=== PATIENT | female | born 1970 | race Caucasian/White ===

== ENCOUNTER → 2017-03-18 16:32 | Outpatient (CLI) | payer BC, SELFPAY ==
[2017-03-18 18:15] LABS: Estradiol 133.2 pg/mL
[2017-03-18 18:26] LABS: Progesterone Level 2.42 ng/mL (See Comment)
[2017-03-23 14:56] LABS: HPV Reflexed? NOT INDICATED
== END ==
PROVIDERS: Visit Provider Obstetrics & Gynecology
DX: N95.1 Menopausal and female climacteric states (principal); Z12.4 Encounter for screening for malignant neoplasm of cervix
CPT/HCPCS: 36415; 82670; 84144; 88175; G0145

== ENCOUNTER → 2018-04-28 16:51 | Outpatient (CLI) | payer BC, SELFPAY ==
[2018-04-28 17:47] LABS: Estradiol 36.9 pg/mL
[2018-04-28 18:03] LABS: Progesterone Level 0.89 ng/mL (See Comment)
[2018-05-03 14:44] LABS: HPV Reflexed? NOT INDICATED
== END ==
PROVIDERS: Visit Provider Obstetrics & Gynecology
DX: N95.1 Menopausal and female climacteric states (principal); Z12.4 Encounter for screening for malignant neoplasm of cervix
CPT/HCPCS: 36415; 82670; 84144; 88175; G0145

== ENCOUNTER → 2020-09-07 07:17 | Outpatient (CLI) | payer BC, SELFPAY ==
--- NOTE | 2020-09-07 07:20 | BI_ITS ---
MAMMOGRAPHY - BILATERAL SCREENING REASON FOR EXAM: Female, 50 years old. Routine annual screening examination. PERTINENT HISTORY: Non-contributory. TECHNIQUE: Digital bilateral breast catina (3D mammographic acquisition) in the CC and MLO projections. 2-D mediolateral oblique (MLO) and craniocaudad (CC) views of both breasts were obtained. CAD: Full Field Digital Mammography with Computer Added Detection was performed. COMPARISON: None. Baseline examination. FINDINGS: Breast Composition: The breasts are extremely dense, which lowers the sensitivity of mammography. There are no dominant masses or suspicious calcifications. Bilateral breast implants are seen. The anterior and inferior contours of the left breast implant show a wavy pattern with a linear density in the midline. Early rupture should be ruled out. No other significant abnormalities are identified. BI/SCRN MAMM (CAD)W/CATINA BILAT IMPRESSION: Negative screening mammogram. Irregularity and septation of the left breast implant that described. Clinical correlation is recommended. Yearly followup mammogram recommended. (A) ASSESSMENT CATEGORY: BIRADS Category 2: Benign. A letter regarding these results will be sent to the patient by the facility within 30 days. Approximately 10% of breast cancers are not detected by mammography. A normal mammogram should not delay biopsy of a clinically suspicious abnormality. [id number] Electronically Signed: Param Adan MD at 8:54 EDT , Service support ,
== END ==
PROVIDERS: Referring Provider Obstetrics & Gynecology; Visit Provider Obstetrics & Gynecology
DX: Z12.31 Encounter for screening mammogram for malignant neoplasm of breast (principal)
CPT/HCPCS: 77063; 77067

== ENCOUNTER → 2021-09-03 | Outpatient (CLI) | payer BC, SELFPAY ==
[2021-09-03 17:23] LABS: Estradiol 34.2 pg/mL
== END | disposition home or self-care (01) ==
PROVIDERS: Visit Provider Obstetrics & Gynecology
DX: Z12.4 Encounter for screening for malignant neoplasm of cervix (principal); Z78.0 Asymptomatic menopausal state
CPT/HCPCS: 82670; 84144; 87624; 88175; G0145

== ENCOUNTER → 2021-10-31 | Outpatient (CLI) | payer BC, SELFPAY ==
[2021-10-31 15:20] LABS: Red Blood Cells-Urine 0 SEEN /hpf (0-5); White Blood Cells 0 SEEN /hpf (0-5)
[2021-10-31 16:38] LABS: Basophil# 0.06 X10^3/uL; Basophil% 0.9 % (0-1); Color, Urine Yellow (Yellow); Eosinophil# 0.06 X10^3/uL; Eosinophils% 0.9 % (0-5); Glucose, Dipstick Normal (Normal); Hematocrit 43.2 % (37-47); Hemoglobin 14.3 g/dL (12.0-15.0); Ketone-Dipstick Negative (Negative); Leukocyte Esterase-Dipstick Negative /ul (Negative); Lymphocyte % 29.8 % (19-41); Mean Corp Hgb Conc 33.1 g/dL (32-36); Mean Corpuscular Hgb 28.8 pg (27.0-32.0); Mean Corpuscular Volume 86.9 fL (81-99); Mean Platelet Vol. 9.4 fl (6.2-12.0); Monocyte# 0.76 X10^3/uL; Monocyte% 10.8 % (0-10); NRBC Flagged by Analyzer 0 % (0-5); Neutrophil # 4.04 X10^3/uL (2.7-7.7); Neutrophil % 57.3 % (47-70); Nitrite-Dipstick Negative (Negative); Occult Blood-Urine Negative /ul (Negative); Platelet Count 324 K/mm3 (150-450); Protein-Dipstick Negative (Negative); RBC Distribution Width CV 12.9 % (11.6-14.6); RBC Distribution Width SD 40.5 fl (35.1-43.9); Red Blood Count 4.97 M/mm3 (4.2-5.4); Specific Gravity, Urine 1.025 (1.002-1.030); Urine Bilirubin Dipstick Negative (Negative); Urine Clarity Clear (Clear); Urine Urobilinogen Normal (Normal)
[2021-10-31 16:45] LABS: Erythrocyte Sedimentation Rate 8 mm/hr (0-30)
[2021-10-31 16:50] LABS: Bacteria 2+ /hpf (None Seen); Squamous Epithelial Cells - UA 5-10 SEEN /hpf (5-10)
[2021-10-31 16:51] LABS: Mucous, Urine 2+ /hpf (<or=2+)
[2021-10-31 16:54] LABS: AST(SGOT) 16 U/L (15-37); Alanine Aminotransfer ALT/SGPT 27 U/L (13-56); Albumin, Serum 3.9 g/dL (3.2-5.0); Alkaline Phosphatase 88 U/L (45-117); Anion Gap 6 (5-15); BUN 19 mg/dL (7-18); BUN/Creat Ratio 26.2 RATIO (10-20); Calcium,Total 9.4 mg/dL (8.5-10.1); Chloride 102 mmol/L (98-107); Creatinine, Serum 0.72 mg/dL (0.55-1.02); EST Glomerular Filtration Rate 91 mL/min (>60); Est Glom Filt Rate - Afr Amer 110 mL/min (>60); Globulin 4.1 g/dL (2.2-4.2); Glucose 97 mg/dL (74-106); Potassium 3.7 mmol/L (3.5-5.1); Rheumatoid Factor < 10.0 IU/mL (<15); Sodium Level 138 mmol/L (136-145)
[2021-11-05 15:15] LABS: ANTINUCLEAR ANTIBODIES DIRECT Negative (Negative)
[2021-11-06 08:35] LABS: CCP IgG Antibodies 5 units (0-19)
== END | disposition home or self-care (01) ==
LOC: BIMLAB 15:19
PROVIDERS: PCP Internal Medicine; Referring Provider Internal Medicine; Visit Provider Internal Medicine
DX: M19.90 Unspecified osteoarthritis, unspecified site (principal); R10.9 Unspecified abdominal pain; F41.9 Anxiety disorder, unspecified; F32.A Depression, unspecified
CPT/HCPCS: 36415; 80053; 81001; 85025; 85652; 86038; 86200; 86225; 86235; 86431

== ENCOUNTER → 2021-11-04 | Outpatient (CLI) | payer BC, SELFPAY ==
--- NOTE | 2021-11-04 15:18 | BI_ITS ---
MAMMOGRAPHY - BILATERAL SCREENING 3-D TOMOSYNTHESIS REASON FOR EXAM: Female, 51 years old. SCREENING PERTINENT HISTORY: No significant family history. TECHNIQUE: 2-D mammograms and 3-D Tomosynthesis of the breast (s) were performed. CAD was performed. COMPARISON: 09/07/2020 FINDINGS: The breast composition is Extermely dense tissue. Scattered benign calcifications are seen. No dense spiculated masses or suspicious microcalcifications are identified. No architectural distortion is identified. There is no skin thickening or retraction. Bilateral retroglandular saline implants appear intact. BI/SCRN MAMM (CAD)W/CATINA BILAT IMPRESSION: No mammographic signs of malignancy. Routine yearly mammograms recommended. ASSESSMENT CATEGORY: BIRADS Category 1: Negative. A letter regarding these results will be sent to the patient by the facility within 30 days. FOLLOW UP RECOMMENDATION: Yearly follow up mammogram recommended. (A) Approximately 10% of breast cancers are not detected by mammography. A normal mammogram should not delay biopsy of a clinically suspicious abnormality. Electronically Signed: Jose Funes MD at 16:43 EDT ,
== END | disposition home or self-care (01) ==
LOC: OPBI 15:17
PROVIDERS: PCP Internal Medicine; Referring Provider Student in an Organized Health Care Education/Training Program; Visit Provider Student in an Organized Health Care Education/Training Program
DX: Z12.31 Encounter for screening mammogram for malignant neoplasm of breast (principal)
CPT/HCPCS: 77063; 77067

== ENCOUNTER → 2021-11-06 | Outpatient (CLI) | payer BC, SELFPAY | END | disposition home or self-care (01) | LOC: LABSPEC 15:10 | PROVIDERS: PCP Internal Medicine; Referring Provider Internal Medicine; Visit Provider Internal Medicine | DX: R82.90 Unspecified abnormal findings in urine (principal) | CPT/HCPCS: 87086; 87088 ==

== ENCOUNTER 2023-12-02 09:00 | Outpatient (RCR) | payer OTHER, SELFPAY ==
--- NOTE | 2023-11-18 14:04 | HP.OTEVAL ---
Patient's Visit Information Visit Information Visit Information: AURORA JACKSON is a 53 year old F, referred to Occupational Therapy by Dr. Santino Pace MD, with a diagnosis of bilateral wrist prain. Date of Evaluation: 11/18/23 Occupational Therapist: Jacquelyn Ashraf, ERVIN/Isra, CHT Subjective Subjective: This 53 year old female was seen for OT eval with dx of bilateral wrist sprain. Pt states she has been on light duty since May 172023. Pt works at [employer] ( has been employed there for 9 years) pt states she works 8 hour shifts sometimes 6-7 days a week. pt states she was wearing wrist braces all the time since May. Pt states she has noticed snapping even in her sleep and her fingers would go numb even with her wrist braces on. Pt states she went to [facility] for some therapy but with therapy she had increase in pain in wrist as well as pain radiating up to her elbow. pt states she has had a nerve conduction test that was inconclusive, but continues to have constant tingling in bilateral hands. pt states she drops items all the time - feels like to is holding cup but drops it. pt would like to decrease her symptoms and return to her PLOF. 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 Sensation Thumb: right 3.61 left 3.61 interpretation diminished light touch Index: right 3.61 left 3.61 interpretation diminished light touch Middle: right 3.61 left 3.61 interpretation diminished light touch Ring: right 3.61 left 3.61 interpretation diminished light touch Little: right 3.61 left 3.61 interpretation diminished light touch Quick DASH-Disab of Arm,Shoulder& Hand Quick DASH Score: 86.6650 Goals Goal:: pt will demo a increase in bilateral engineering and scientific programmer strength by 15# or greater to return pt to her PLOF by d/c Goal:: pt will report pain no greater than 2/10 with use of BUE with ADLs and IADLs by d/c Goal:: pt will demo monofilament testing at 2.83 by d.c as indication of nerve returning to normal sensation. Goal:: pt will demo understanding of joint protection patricio., wrist and UE ergonomics to decrease pts stress on lig/muscle and tendon groups by d/c pt will demo understanding of using ad. eq. as needed to decrease risk of strain with ADLs by d/c Rehabilitation General Assessment: pt demo with pain, weakness and tingling decreasing pts IND with daily occupations and work task. pt would benefit from skilled OT services 1x week for 6 weeks to improve the above limitations. Today therapist ed. pt on TOS, median and ulnar nerve glides. Will transition pt to wrist stabilization ex. and ed. on work station ergonomics. Pt demo understanding and agree to POC. Rehabilitation Potential: Good Anticipated Interventions Anticipated Interventions: A/AAROM/PROM, Strengthening, Triggerpoint Release, Modalities, Orthoses, Joint Protection/Energy Conservation, Ergonomic Education, Fine Motor Coord/Kris, ADL Training, Education re assistive Equipment, Education re Diagnosis and Home Program Other Interventions: nerve glides Visit Plan Frequency: 1x/Week Duration: 6 Weeks TEXT: Thank you for the opportunity to evaluate your patient. For Medicare and Medicare HMO plans, please review the plan of care and approve it. It will need to be FAXED BACK to us at [phone] for Medicare purposes. Please let me know if there are questions or concerns regarding this plan of care. Physician Signature: Date:
== END 2023-12-02 19:00 | disposition home or self-care (01) ==
LOC: OT 09:00
PROVIDERS: PCP Student in an Organized Health Care Education/Training Program; Referring Provider Emergency Medicine; Visit Provider Emergency Medicine
DX: S63.501A Unspecified sprain of right wrist, initial encounter (principal); S63.502A Unspecified sprain of left wrist, initial encounter
CPT/HCPCS: 97035; 97110; 97140; 97166

== ENCOUNTER → 2024-02-24 | Outpatient (CLI) | payer BC, SELFPAY ==
--- NOTE | 2024-02-24 15:14 | NEURO ---
NCS and/or EMG Patient Report Ordering Doctor: Jake Merritt DATE OF SERVICE: 02/24/24 Anitha presents with complaints of numbness tingling and pain in both hands. 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 Electrodiagnostic findings: Median motor nerve demonstrates normal distal latency, amplitude and conduction velocity bilaterally. Normal ulnar motor response bilaterally, including conduction across the elbow. Normal median and ulnar F?waves. Sensory responses are within normal limits. Needle EMG testing was performed in the upper limbs. All muscles tested showed no evidence of denervation with normal motor unit action potentials. Electrodiagnostic impression: This is a normal electrodiagnostic study of the upper limbs. There is no electrodiagnostic evidence for peripheral neuropathy, including carpal tunnel or cubital tunnel syndrome. There is no electrodiagnostic evidence for cervical radiculopathy. Multi Select Codes Neurology Neurology Interp Codes: 20065-97 Musc test done w/n test comp (interp) (2) and 64006-03 Nrv cndj test 13/> studies (interp)
== END | disposition home or self-care (01) ==
LOC: PSN 13:27
PROVIDERS: PCP Student in an Organized Health Care Education/Training Program; Referring Provider Orthopaedic Surgery Sports Medicine; Visit Provider Orthopaedic Surgery Sports Medicine
DX: G56.03 Carpal tunnel syndrome, bilateral upper limbs (principal)
CPT/HCPCS: 95886; 95913